=== PATIENT | female | born 2005 | race Caucasian/White ===

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

== ENCOUNTER 2023-03-01 10:48 | Outpatient (CLI) | payer OTHER | END 2023-03-01 10:49 | disposition home or self-care (01) | LOC: RT 10:48 | PROVIDERS: ATTEND Nurse Practitioner Family | DX: R07.89 Other chest pain (principal); J30.9 Allergic rhinitis, unspecified | CPT/HCPCS: 94060 ==